=== PATIENT | male | born 1985 | race African-American/Black ===

== ENCOUNTER 2016-09-22 22:41 | Emergency (ER) | payer OTHER ==
[~2016-09-22] VITALS: Ht 175.3 cm; Wt 90.9 kg
[2016-09-22 22:52] VITALS: BP 134/90; PULSE 93; RESP 18; O2SAT 98
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
[2016-09-23] MEDS ORDERED: IBUP-232 PO (00:18)
[2016-09-23] MEDS ORDERED: KETOROLAC TROMETHAMINE 60 MG/2 ML (IM) VIAL IM ONE (00:30)
== END 2016-09-23 01:17 | disposition home or self-care (01) ==
LOC: NEPC 22:41
DX: S60.511A Abrasion of right hand, initial encounter (principal); S40.212A Abrasion of left shoulder, initial encounter; S80.212A Abrasion, left knee, initial encounter; S50.312A Abrasion of left elbow, initial encounter; S30.810A Abrasion of lower back and pelvis, initial encounter; V29.88XA Motorcycle rider (driver) (passenger) injured in other specified transport accidents, initial encounter; Y92.410 Unspecified street and highway as the place of occurrence of the external cause
CPT/HCPCS: 70450; 71010; 71250; 72125; 72170; 73130; 73564; 74176; 96372; 99284; J1885